=== PATIENT | female | born 1965 | race Caucasian/White ===

== ENCOUNTER 2021-08-28 09:08 | Emergency (ER) | payer MEDICAID ==
[~2021-08-28] VITALS: Ht 149.9 cm; Wt 48.0 kg
[2021-08-28 10:05] LABS: BASOPHILS % 0.2 % (0.0-2.0); EOSINOPHILS % 0.2 % (0.0-5.0); HEMATOCRIT. 37.6 % (36.0-48.0); HEMOGLOBIN. 12.4 g/dL (12.0-16.0); LYMPHOCYTES % 32.2 % (20.0-50.0); MEAN CORPUSCULAR HEMOGLOBIN 27.9 pg (28.0-32.0); MEAN CORPUSCULAR VOLUME 84.5 fL (81.0-99.0); MONOCYTES % 6.6 % (2.0-8.0); NEUTROPHILS % 60.8 % (40.0-76.0); PLATELET 148 x1000/uL (130-400); RED BLOOD CELL COUNT 4.45 mill/uL (4.2-5.4); RED CELL DISTRIBUTION WIDTH 12.4 % (11.6-14.6)
[2021-08-28 10:15] LABS: CHLORIDE 110 mEq/L (98-107)
[2021-08-28] MEDS ORDERED: KETOROLAC 30MG/ML VIAL IV ONE (10:45)
[2021-08-28] MEDS ORDERED: TOPUD PO (10:46)
[2021-08-28 11:11] VITALS: BP 132/62
== END 2021-08-28 11:11 | disposition home or self-care (01) ==
LOC: ER 09:18
DX: R00.2 Palpitations (principal); E05.90 Thyrotoxicosis, unspecified without thyrotoxic crisis or storm; M79.605 Pain in left leg; M79.604 Pain in right leg; M79.89 Other specified soft tissue disorders; E11.9 Type 2 diabetes mellitus without complications
CPT/HCPCS: 36415; 71045; 80053; 82962; 83880; 84443; 84484; 85025; 93005; 99285

== ENCOUNTER 2022-02-06 11:03 | Emergency (ER) | payer MEDICAID, OTHER ==
[~2022-02-06] VITALS: Ht 149.9 cm; Wt 44.0 kg
[~2022-02-06 11:03] MED LIST: TOPUD PO
[2022-02-06 11:12] VITALS: BP 111/82
== END 2022-02-06 12:31 | disposition left against medical advice (07) ==
LOC: ER 11:03
DX: Z53.21 Procedure and treatment not carried out due to patient leaving prior to being seen by health care provider (principal)

== ENCOUNTER 2023-02-22 16:24 | Emergency (ER) | payer MEDICAID ==
[~2023-02-22] VITALS: Ht 157.5 cm; Wt 55.0 kg
[2023-02-22 16:40] VITALS: BP 147/87; O2SAT 100
[2023-02-23 03:00] VITALS: PULSE 75; RESP 18
[2023-02-23] MEDS ORDERED: LIDO700A15 TP (03:06)
[2023-02-23] MEDS ORDERED: MED4 MT (03:06)
[2023-02-23] MEDS ORDERED: T3 PO (03:06)
[2023-02-23] MEDS ORDERED: LIDOCAINE 5% PATCH TOP SCH (03:15)
[2023-02-23] MEDS ORDERED: METHYLPREDNISOLONE 4MG TABLET PO NR (03:15)
[2023-02-23] MEDS ORDERED: ACETAMINOPHEN 325MG TABLET PO NR (03:15)
[2023-02-23 03:28] VITALS: TEMP 97.4
== END 2023-02-23 03:32 | disposition home or self-care (01) ==
LOC: ER 16:24
DX: M54.50 Low back pain, unspecified (principal); I10 Essential (primary) hypertension; G43.909 Migraine, unspecified, not intractable, without status migrainosus; F12.10 Cannabis abuse, uncomplicated
CPT/HCPCS: 99284; 71045; J7509

== ENCOUNTER 2024-09-17 11:18 | Emergency (ER) | payer SELFPAY ==
[~2024-09-17] VITALS: Ht 154.9 cm; Wt 45.0 kg
[~2024-09-17 11:18] MED LIST changes: +LIDO-53 TP; +METH4TAB95 MT; +T3 PO
[2024-09-17 11:21] VITALS: BP 169/89; PULSE 62; RESP 22; TEMP 37.1; O2SAT 98
[2024-09-17] MEDS: MORPHINE SULFATE 4 MG/ML INJ (FOR IV/IM USE) IM ONE (12:23)
[2024-09-17] MEDS: ONDANSETRON 4MG ODT PO ONE (12:23)
[2024-09-17] MEDS: IBUPROFEN 600MG TABLET PO ONE (12:23)
[2024-09-17] MEDS ORDERED: IBUP-2029 MT (13:09)
[2024-09-17] MEDS ORDERED: HYDR-4001 MT (13:09)
== END 2024-09-17 13:15 | disposition home or self-care (01) ==
LOC: ER 11:18
DX: S62.101A Fracture of unspecified carpal bone, right wrist, initial encounter for closed fracture (principal); I10 Essential (primary) hypertension; X58.XXXA Exposure to other specified factors, initial encounter; Y93.01 Activity, walking, marching and hiking; Y92.89 Other specified places as the place of occurrence of the external cause; Y99.8 Other external cause status
CPT/HCPCS: 99284; 73070; 73100; 73120; 29125; 96372; Q0162; J2270; A6449; A4565